=== PATIENT | female | born 1995 | race Caucasian/White ===

== ENCOUNTER 2025-03-27 01:40 | Inpatient (IN) | payer OTHER, SELFPAY ==
[2025-03-27 01:57] VITALS: BP 149/92; BMI 24.6
[2025-03-27] MEDS: LR 1000 IV ×2 (02:22→17:23)
[2025-03-27 02:39] LABS: Hematocrit 38.3 % (37.0-47.0); Hemoglobin 13.7 g/dL (12.0-16.0); Mean Corp Hgb Conc. 35.8 g/dL (33.0-37.0); Mean Corpuscular Volume 84.9 fL (81.0-99.0); Nucleated Red Blood Cells % 0 %; Platelet Count 195 10^3/uL (130-400); Red Cell Dist. Width 12.7 % (11.5-14.5)
[2025-03-27 03:15] LABS: ALT (SGPT) 23 U/L (0-35); AST (SGOT) 33 U/L (14-36); Albumin 3.8 g/dl (3.5-5.0); Alkaline Phosphatase 240 U/L (38-126); Blood Urea Nitrogen 10 mg/dl (7-17); Calcium 9.4 mg/dl (8.4-10.2); Carbon Dioxide 22 mmol/L (22-30); Chloride 106 mmol/L (98-107); Estimated Creatinine Clearance 118 ml/min; Glucose 83 mg/dl (70-99); Potassium 4.0 mmol/L (3.5-5.1); Sodium 135 mmol/L (135-145); Total Protein 7.1 g/dl (6.3-8.2); eGFR > 60.00
[2025-03-27 03:52] LABS: Hepatitis B Surface Antigen Negative (Negative)
[2025-03-27] MEDS: SUBLIMAZE 100 MCG EPIDURAL (12:36)
[2025-03-27] MEDS: FENTANYL/BUPIVACAINE 100 EPIDURAL (12:37)
[2025-03-27] MEDS: TRANDATE 20 MG IV (16:05)
[2025-03-27] MEDS: MAGNESIUM SULFATE 100 IV (16:13)
[2025-03-27] MEDS: TRANEXAMIC ACID 100 IV (16:26)
[2025-03-27] MEDS: ANCEF 10 IV (17:23)
[2025-03-27] MEDS: MAGNESIUM SULFATE 40 GRAM 1000 IV (17:33)
[2025-03-27 17:38] LABS: Hematocrit 31.1 % (37.0-47.0); Hemoglobin 11.4 g/dL (12.0-16.0); Mean Corp Hgb Conc. 36.7 g/dL (33.0-37.0); Mean Corpuscular Volume 84.5 fL (81.0-99.0); Platelet Count 206 10^3/uL (130-400); Red Cell Dist. Width 12.9 % (11.5-14.5)
[2025-03-27 17:47] LABS: AST (SGOT) 45 U/L (14-36); Albumin 3.0 g/dl (3.5-5.0); Alkaline Phosphatase 187 U/L (38-126); Blood Urea Nitrogen 11 mg/dl (7-17); Calcium 8.4 mg/dl (8.4-10.2); Carbon Dioxide 19 mmol/L (22-30); Chloride 102 mmol/L (98-107); Estimated Creatinine Clearance 118 ml/min; Glucose 107 mg/dl (70-99); Potassium 4.2 mmol/L (3.5-5.1); Sodium 125 mmol/L (135-145); Total Protein 5.7 g/dl (6.3-8.2); eGFR > 60.00
[2025-03-27 17:56] LABS: ALT (SGPT) 28 U/L (0-35)
[2025-03-27 18:17] LABS: Absolute Neutrophils -Man Diff 22.1 10^3/uL (1.4-6.5)
[2025-03-27 18:18] LABS: Normal RBC Morphology Yes; Platelets Checked Yes; Total Cells Counted 100
[2025-03-27] MEDS: LR IV (18:38)
[2025-03-27] MEDS: TYLENOL 650 MG PO ×2 (19:18→23:20)
[2025-03-27] MEDS: MOTRIN 600 MG PO (19:19)
[2025-03-27] MEDS: COLACE PO (20:00)
[2025-03-28] MEDS: LR 1000 IV ×2 (00:40→12:59)
[2025-03-28] MEDS: MOTRIN 600 MG PO ×3 (01:36→19:59)
[2025-03-28] MEDS: TYLENOL 650 MG PO ×3 (04:13→19:59)
[2025-03-28 06:04] LABS: Hematocrit 26.8 % (37.0-47.0); Hemoglobin 9.5 g/dL (12.0-16.0); Mean Corp Hgb Conc. 35.4 g/dL (33.0-37.0); Mean Corpuscular Volume 89.0 fL (81.0-99.0); Platelet Count 172 10^3/uL (130-400); Red Cell Dist. Width 13.2 % (11.5-14.5)
[2025-03-28 06:35] LABS: ALT (SGPT) 25 U/L (0-35); AST (SGOT) 60 U/L (14-36); Albumin 2.8 g/dl (3.5-5.0); Alkaline Phosphatase 176 U/L (38-126); Blood Urea Nitrogen 9 mg/dl (7-17); Calcium 7.2 mg/dl (8.4-10.2); Carbon Dioxide 27 mmol/L (22-30); Chloride 102 mmol/L (98-107); Estimated Creatinine Clearance 101 ml/min; Glucose 90 mg/dl (70-99); Potassium 4.1 mmol/L (3.5-5.1); Sodium 131 mmol/L (135-145); Total Protein 5.2 g/dl (6.3-8.2); eGFR > 60.00
[2025-03-28] MEDS: PRENATAL PLUS 1 TABLET PO (07:52)
[2025-03-28] MEDS: COLACE 100 MG PO ×2 (07:52→19:58)
[2025-03-28] MEDS: MAGNESIUM SULFATE 40 GRAM 1000 IV (12:59)
[2025-03-28] MEDS: TRANDATE 200 MG PO (18:24)
[2025-03-29] MEDS: TYLENOL 650 MG PO ×2 (00:12→08:31)
[2025-03-29] MEDS: MOTRIN 600 MG PO ×2 (01:27→08:31)
[2025-03-29] MEDS: PRENATAL PLUS 1 TABLET PO (08:31)
[2025-03-29] MEDS: COLACE 100 MG PO (08:31)
[2025-03-29] MEDS: TRANDATE 200 MG PO (08:31)
[2025-03-30 12:57] LABS: Syphilis/T. pallidum Ab Reflex Negative (Negative)
== END 2025-03-29 14:00 | disposition home or self-care (01) | DRG 768 ==
LOC: LDRP 01:40
PROVIDERS: Obstetrics & Gynecology; Student in an Organized Health Care Education/Training Program; ADMITTING PHYSICIAN Obstetrics & Gynecology
PROC: 0DQP0ZZ Repair Rectum, Open Approach (ICD-10-PCS; 2025-03-27)
PROC: 10907ZC Drainage of Amniotic Fluid, Therapeutic from Products of Conception, Via Natural or Artificial Opening (ICD-10-PCS; 2025-03-27)
PROC: 10E0XZZ Delivery of Products of Conception, External Approach (ICD-10-PCS; 2025-03-27)
DX: O48.0 Post-term pregnancy (principal); Z37.0 Single live birth; O70.3 Fourth degree perineal laceration during delivery; Z3A.40 40 weeks gestation of pregnancy; O14.04 Mild to moderate pre-eclampsia, complicating childbirth
CPT/HCPCS: 36415; 80053; 82570; 84156; 85025; 85027; 86780; 86850; 86900; 86901; 87340; 88307